=== PATIENT | female | born 1990 ===

== ENCOUNTER 2017-07-24 16:12 | Outpatient (CLI) | payer OTHER | END 2017-07-24 17:58 | disposition home or self-care (01) | LOC: M LDO 16:12 | DX: O47.03 False labor before 37 completed weeks of gestation, third trimester (principal); Z3A.36 36 weeks gestation of pregnancy; Z88.5 Allergy status to narcotic agent | CPT/HCPCS: 59025 ==

== ENCOUNTER 2017-08-01 18:08 | Inpatient (IN) | payer OTHER ==
[2017-08-01] MEDS ORDERED: TERBUTALINE SULFATE 1 MG/ML VIAL (J3105) As Ordered (18:28)
[2017-08-01 18:42] LABS: HEMATOCRIT 33.4 % (36.0-47.0); HEMOGLOBIN 11.3 g/dl (12.0-16.0); MEAN CORPUSCULAR HEMOGLOBIN 30.4 pg (27.0-33.0); MEAN CORPUSCULAR HGB CONC 33.8 g/dl (32.0-36.5); MEAN CORPUSCULAR VOLUME 89.8 fl (80.0-96.0); PLATELET COUNT, AUTOMATED 185 10^3/uL (150-450); RED BLOOD COUNT 3.72 10^6/uL (4.00-5.40); RED CELL DISTRIBUTION WIDTH 13.9 % (11.5-14.5); WHITE BLOOD COUNT 20.5 10^3/uL (4.0-10.0)
[2017-08-01] MEDS: LACTATED RINGER'S 1000 ML IV (18:55)
[2017-08-01] MEDS ORDERED: FENTANYL 2MCG/ML ROPIVACAINE 0.2% IN 0.9% NACL 200ML IVBAG As Ordered (18:57)
[2017-08-01] MEDS: TERBUTALINE SULFATE 1 MG/ML VIAL (J3105) SC (19:03)
[2017-08-01] MEDS: LR 1,000 ML IV (19:03)
[2017-08-01] MEDS ORDERED: NALOXONE INJ 0.4 MG/1 ML VIAL (J2310) IV ×3 (19:30→20:30)
[2017-08-01] MEDS: FENTANYL/ROPIVACAINE/NACL BAG 200 ML EPIDURAL (19:30)
[2017-08-01] MEDS ORDERED: LACTATED RINGER'S 1000 ML IV (19:30)
[2017-08-01] MEDS ORDERED: ONDANSETRON 4MG/2ML VIAL (J2405) IV ×4 (19:30→23:15)
[2017-08-01] MEDS ORDERED: EPIDURAL/PCA KEYS XX (19:30)
[2017-08-01] MEDS ORDERED: REFRIGERATOR IV KEYS XX (19:30)
[2017-08-01] MEDS ORDERED: EPIDURAL COMMENT XX (19:30)
[2017-08-01] MEDS ORDERED: ePHEDrine SULFATE 25 MG/5 ML(5MG/ML) SYRINGE IV (19:30)
[2017-08-01] MEDS ORDERED: diphenhydrAMINE INJ 50MG/ML VIAL (J1200) IV (19:30)
[2017-08-01] MEDS ORDERED: LIDOCAINE PRES-FREE 2% 10ML AMP As Ordered ×2 (19:36)
[2017-08-01] MEDS ORDERED: BICITRA 30ML SOLN UDC As Ordered (19:38)
[2017-08-01] MEDS ORDERED: ceFAZolin 2 GM/D5W 50 ML IV BAG (J0690 PER 500MG) As Ordered (19:38)
[2017-08-01 20:04] LABS: IMMEDIATE SPIN CROSSMATCH 1 2
[2017-08-01 20:12] LABS: CORD GAS ABE V -23.8; CORD GAS HCO3 V 12.9 MEQ/L; CORD GAS O2 SAT V 62.1 %; CORD GAS PO2 V 41.1 mmHg; CORD GAS SBC V 8.2 MEQ/L; CORD GAS TCO2 V 15.5 MEQ/L
[2017-08-01 20:13] LABS: CORD GAS ABE A -21.3; CORD GAS HCO3 A 14.5 MEQ/L; CORD GAS O2 SAT A 36.7 %; CORD GAS PCO2 A 86.3 mmHg; CORD GAS PO2 A 25.2 mmHg; CORD GAS SBC A 8.8 MEQ/L; CORD GAS TCO2 A 17.1 MEQ/L
[2017-08-01] MEDS ORDERED: OXYTOCIN INJ 10 UNITS/ML VIAL (J2590) As Ordered ×6 (20:13)
[2017-08-01 20:15] LABS: CORD GAS PH A 6.843 UNITS
[2017-08-01] MEDS ORDERED: ONDANSETRON 4MG/2ML VIAL (J2405) As Ordered (20:21)
[2017-08-01] MEDS ORDERED: PHENYLephrine HCL 500 MCG/5 ML (100MCG/ML) SYRINGE (J2370) As Ordered ×2 (20:21)
[2017-08-01] MEDS ORDERED: ePHEDrine SULFATE 25 MG/5 ML(5MG/ML) SYRINGE As Ordered ×2 (20:21)
[2017-08-01 20:27] LABS: INR 1.11; PARTIAL THROMBOPLASTIN TIME 26.2 SECONDS (26.8-37.9); PROTHROMBIN TIME 14.5 SECONDS (12.4-14.5)
[2017-08-01] MEDS ORDERED: MORPHINE PRES-FREE INJ 10 MG/10 ML VIAL (J2274) As Ordered (20:29)
[2017-08-01] MEDS ORDERED: METOCLOPRAMIDE INJ 10MG/2ML VIAL (J2765) IV (20:30)
[2017-08-01] MEDS ORDERED: NALBUPHINE HCL 10 MG/ML AMP (J2300) IV ×2 (20:30→21:15)
[2017-08-01 20:32] LABS: FIBRINOGEN 165 MG/DL (221-452)
[2017-08-01] MEDS ORDERED: fentaNYL 100 MCG/2 ML INJECTION (J3010) IV (21:15)
[2017-08-01 21:46] LABS: HEMATOCRIT 28.3 % (36.0-47.0); HEMOGLOBIN 9.7 g/dl (12.0-16.0); MEAN CORPUSCULAR HEMOGLOBIN 30.7 pg (27.0-33.0); MEAN CORPUSCULAR HGB CONC 34.3 g/dl (32.0-36.5); MEAN CORPUSCULAR VOLUME 89.6 fl (80.0-96.0); PLATELET COUNT, AUTOMATED 123 10^3/uL (150-450); RED BLOOD COUNT 3.16 10^6/uL (4.00-5.40); RED CELL DISTRIBUTION WIDTH 13.8 % (11.5-14.5); WHITE BLOOD COUNT 22.3 10^3/uL (4.0-10.0)
[2017-08-01] MEDS ORDERED: CEFAZOLIN SOD 2 GM in APPROPRIATE DILUENT 1 EA IV (23:10)
[2017-08-01] MEDS ORDERED: MEASLES,MUMPS,RUBELLA VACCINE INJ (MMR-II) (90707) SC (23:15)
[2017-08-01] MEDS ORDERED: RHOGAM 300 MCG (1500 IU) INJ (J2790) IM (23:15)
[2017-08-01] MEDS ORDERED: PERCOCET 5MG/325MG TAB PO (23:15)
[2017-08-02 00:18] LABS: INR 1.18; PROTHROMBIN TIME 15.2 SECONDS (12.4-14.5)
[2017-08-02 00:23] LABS: FIBRINOGEN 170 MG/DL (221-452)
[2017-08-02 00:27] LABS: HEMATOCRIT 26.3 % (36.0-47.0); HEMOGLOBIN 9.1 g/dl (12.0-16.0); MEAN CORPUSCULAR HEMOGLOBIN 30.5 pg (27.0-33.0); MEAN CORPUSCULAR HGB CONC 34.6 g/dl (32.0-36.5); MEAN CORPUSCULAR VOLUME 88.3 fl (80.0-96.0); PLATELET COUNT, AUTOMATED 129 10^3/uL (150-450); RED BLOOD COUNT 2.98 10^6/uL (4.00-5.40); RED CELL DISTRIBUTION WIDTH 13.7 % (11.5-14.5); WHITE BLOOD COUNT 20.3 10^3/uL (4.0-10.0)
[2017-08-02] MEDS: PERCOCET 5MG/325MG TAB PO ×5 (01:55→18:31)
[2017-08-02] MEDS: LR 1,000 ML IV ×2 (01:58→08:25)
[2017-08-02 06:11] LABS: HEMATOCRIT 23.1 % (36.0-47.0); HEMOGLOBIN 8.1 g/dl (12.0-16.0); MEAN CORPUSCULAR HEMOGLOBIN 30.7 pg (27.0-33.0); MEAN CORPUSCULAR HGB CONC 35.1 g/dl (32.0-36.5); MEAN CORPUSCULAR VOLUME 87.5 fl (80.0-96.0); PLATELET COUNT, AUTOMATED 113 10^3/uL (150-450); RED BLOOD COUNT 2.64 10^6/uL (4.00-5.40); RED CELL DISTRIBUTION WIDTH 13.8 % (11.5-14.5); WHITE BLOOD COUNT 17.4 10^3/uL (4.0-10.0)
[2017-08-02 06:24] LABS: INR 1.16
[2017-08-02 06:25] LABS: FIBRINOGEN 185 MG/DL (221-452)
[2017-08-02] MEDS: SIMETHICONE 80 MG CHEW TAB PO (08:24)
[2017-08-02] MEDS: DOCUSATE SODIUM 100 MG CAP PO (09:46)
[2017-08-02] MEDS: PRENATAL VITAMINS CHEWABLE TABLET PO (09:46)
[2017-08-02 13:08] LABS: HEMATOCRIT 21.6 % (36.0-47.0); HEMOGLOBIN 7.7 g/dl (12.0-16.0); MEAN CORPUSCULAR HEMOGLOBIN 31.2 pg (27.0-33.0); MEAN CORPUSCULAR HGB CONC 35.6 g/dl (32.0-36.5); MEAN CORPUSCULAR VOLUME 87.4 fl (80.0-96.0); PLATELET COUNT, AUTOMATED 113 10^3/uL (150-450); RED BLOOD COUNT 2.47 10^6/uL (4.00-5.40); RED CELL DISTRIBUTION WIDTH 13.8 % (11.5-14.5); WHITE BLOOD COUNT 13.9 10^3/uL (4.0-10.0)
[2017-08-02 13:19] LABS: FIBRINOGEN 250 MG/DL (221-452)
[2017-08-02 14:56] LABS: ALBUMIN 2.3 GM/DL (3.2-5.2); ALBUMIN/GLOBULIN RATIO 0.82 (1.00-1.93); ALKALINE PHOSPHATASE 107 U/L (45-117); ALT/SGPT 14 U/L (12-78); ANION GAP 9 MEQ/L (8-16); AST/SGOT 26 U/L (7-37); BILIRUBIN,TOTAL 0.3 MG/DL (0.2-1.0); BLOOD UREA NITROGEN 4 MG/DL (7-18); CALCIUM LEVEL 7.9 MG/DL (8.5-10.1); CARBON DIOXIDE LEVEL 27 MEQ/L (21-32); CHLORIDE LEVEL 106 MEQ/L (98-107); CREATININE FOR GFR 0.55 MG/DL (0.55-1.30); GLOMERULAR FILTRATION RATE > 60.0 (>60); GLUCOSE, FASTING 87 MG/DL (70-100); LDH LACTATE DEHYDROGENASE 242 U/L (84-246); POTASSIUM SERUM 3.7 MEQ/L (3.5-5.1); SODIUM LEVEL 142 MEQ/L (136-145); TOTAL PROTEIN 5.1 GM/DL (6.4-8.2); URIC ACID 4.6 MG/DL (2.6-6.0)
[2017-08-02] MEDS: diphenhydrAMINE 25 MG CAP PO (16:00)
[2017-08-02] MEDS: IBUPROFEN 800 MG TAB PO (18:31)
== END 2017-08-02 19:18 | disposition home or self-care (01) | DRG 766 ==
LOC: M LDO 18:08 → M LDI 18:21
PROVIDERS: Emergency Medicine Pediatric Emergency Medicine; Obstetrics & Gynecology
PROC: 10D00Z1 Extraction of Products of Conception, Low, Open Approach (ICD-10-PCS; principal; 2017-08-01 07:20)
PROC: 30233N1 Transfusion of Nonautologous Red Blood Cells into Peripheral Vein, Percutaneous Approach (ICD-10-PCS; 2017-08-01 07:20)
DX: O45.023 Premature separation of placenta with disseminated intravascular coagulation, third trimester (principal); Z3A.37 37 weeks gestation of pregnancy; Z37.1 Single stillbirth